=== PATIENT | female | born 1995 | race Two or more races ===

== ENCOUNTER 2018-10-05 08:05 | Emergency (ER) | payer MEDICAID, OTHER ==
[~2018-10-05] VITALS: Ht 162.6 cm; Wt 99.8 kg
[2018-10-05 08:10] VITALS: BP 153/97
[2018-10-05] MEDS ORDERED: IBUPROFEN 800 MG TAB PO ONE (08:15)
== END 2018-10-05 09:15 | disposition home or self-care (01) ==
LOC: ER 08:05 → EDBD 08:05 → ER 09:10
DX: S16.1XXA Strain of muscle, fascia and tendon at neck level, initial encounter (principal); S39.012A Strain of muscle, fascia and tendon of lower back, initial encounter; S20.219A Contusion of unspecified front wall of thorax, initial encounter; V43.62XA Car passenger injured in collision with other type car in traffic accident, initial encounter; Y93.89 Activity, other specified; Y92.488 Other paved roadways as the place of occurrence of the external cause; Y99.8 Other external cause status
CPT/HCPCS: 71046; 72040